=== PATIENT | female | born 1980 | race Caucasian/White ===

== ENCOUNTER 2022-11-22 01:05 | Day surgery (SDC) | payer OTHER, SELFPAY ==
[2022-11-11 15:28] VITALS: BMI 27.9
--- NOTE | 2022-11-11 15:34 | PC.NURSE ---
Report to the Outpatient Waiting Room, entrance under the green pavilion located off [facility], at time 0615 on date 11/22/22. Planned Procedure Time: 0815. Time changes happen often and if your time is changed the preop area will call you the afternoon before. - You and your visitor will be asked to self-screen and do not enter if you have any COVID symptoms. - Only one visitor is requested with a max of two and NO children visitors are allowed at this time. - The patient visitor may be requested to leave or wait in car when not with patient due to distancing restrictions. - A mask is optional within the hospital at this time. Patients may have clear liquids (water, carbonated beverages, clear teas, apple juice) until 3 hours prior to surgery with a maximum of 20 ounces. - No food from midnight until time of surgery - Infants may have breast milk until 4 hours before surgery, formula 6 hours prior to surgery. - Children will be allowed to drink immediately following surgery. If applicable, please bring a bottle or sippy cup to assist with drinking. Juice, water, soda, and popsicles are readily available. For infants on formula, please bring formula the day of surgery. Pacifiers are allowed. Take the following medications with a SIP of water the morning of surgery: NONE DO NOT STOP ANY OF YOUR OTHER PRESCRIPTION MEDICATIONS PRIOR TO SURGERY EXCEPT THE FOLLOWING Medications to discontinue per physician: VITAMINS/SUPPLEMENTS Date to take last dose: 11/18/22 Please no make-up, nail mosotho, hairspray, perfume, deodorant, or body powder the day of surgery. No jewelry (including any body piercings) or valuables the day of surgery, leave them at home. Please take a shower or bath the night before, or the morning of, surgery with an antibacterial soap. Wear comfortable, loose fitting clothing. - Jewelry must be removed prior to entering the operating room. Rings and piercings that are not removed may be cut off. - The hospital will not accept responsibility for valuables. - Please leave all valuables, including medications, at home the day of surgery. If you are going home after surgery, a licensed recycler forklift driver truck driver must drive you home. - NO public transportation without another adult if you receive anesthesia. - We recommend that an adult stay with you for 24 hours following discharge. - We also recommend that you do not drive, make important decision, drink alcoholic beverages, or take any drugs that were not prescribed by your health care provider for at least 24 hours after your discharge time. Follow any additional instructions given to you from your surgeon. If you or anyone in your household have experienced Covid symptoms in the past week, please notify your surgeon or the nurse liaison at the phone number below for possible testing. Telephone instructions given to PT - JEAN COPELAND and asked if any additional questions and then verbalized understanding. Patient advised to call surgeon office or pre surgery nurse liaison [phone] if any additional questions.
[2022-11-22 06:26] VITALS: BP 115/74; PULSE 67; RESP 20; TEMP 36.2; O2SAT 100
[2022-11-22] MEDS: ACETAMINOPHEN 500 MG TABLET 1000 MG PO (06:57)
[2022-11-22] MEDS: LACTATED RINGERS 1,000 ML 30 ML IV CONT (07:00)
--- NOTE | 2022-11-22 07:35 | WPDHPUPDATE1 ---
History and Physical Update Update Date/Time: 11/22/22 07:35 History and Physical has been reviewed, including an updated exam of the patient. There are NO changes in the patient's condition. Risks, benefits, and alternatives have been discussed and questions answered. Patient agrees to proceed with procedure.
--- NOTE | 2022-11-22 07:35 | PM.HPGS ---
History of Present Illness History of Present Illness Consent: Risks, benefits, and alternatives have been discussed and questions answered. Patient agrees to proceed with procedure. Chief complaint: Menorrhagia, Fibroids Narrative: Elena Raman is a 41 year old female with a change in her cycles over the past several months. patient had episode of prolonged spotting for 15 days in addition the cycles have been getting heavier. Ultrasound shows 2 small fibroids. It was recommended to proceed with D&C hysteroscopy. Risks of infection, bleeding, and perforation are reviewed. Patient voices understanding agrees to proceed. Review of Systems Review of Systems: not repeated day of surgery; patient states no changes in status PMFSH Past Medical History Medical History (Updated 11/22/22 @ 07:47 by Tere Cornelius MD) HTN (hypertension) Surgical History Surgical History (Updated 11/22/22 @ 07:47 by Tere Cornelius MD) History of x2 History of laparoscopic cholecystectomy History of tonsillectomy Social History Social History Smoking status: Never smoker Alcohol intake: never Substance use: never Substance use type: does not use Living arrangements: with family Spiritual care concerns: No Meds Home Medications and Allergies Home Medications Medication Instructions Recorded Confirmed Type ascorbic acid (vitamin C) 500 mg 500 mg PO DAILY 11/11/22 11/22/22 History tablet (Vitamin C) cholecalciferol (vitamin D3) 125 125 mcg PO DAILY 11/11/22 11/22/22 History mcg (5,000 unit) tablet (Vitamin D3) fenofibrate nanocrystallized 145 145 mg PO DAILY 11/11/22 11/22/22 History mg tablet magnesium 250 mg tablet 250 mg PO DAILY 11/11/22 11/22/22 History multivitamin 1 tablet PO DAILY 11/11/22 11/22/22 History norethindrone 1 mg-e. estradiol 20 1 tablet PO HS 11/11/22 11/22/22 History mcg (24)-iron 75 mg (4) chew tablet (Minastrin 24 Fe) vitamin B complex 1 tablet PO DAILY 11/11/22 11/22/22 History Allergies Allergy/AdvReac Type Severity Reaction Status Date / Time Bleach (Sodium Hypochlorite) Allergy Hives Verified 11/22/22 06:29 ketorolac [From Toradol] Allergy Swelling Verified 03/13/23 06:29 propoxyphene Allergy Hallucinati Verified 11/22/22 06:29 [From Darvocet-N] ng tramadol [From Ultram] AdvReac Headache/N/ Verified 11/22/22 06:29 V Assessment and Plan Assessment and plan (1) Menorrhagia: Code(s): N92.0 - Excessive and frequent menstruation with regular cycle Status: Acute Assessment and Plan: plan to proceed with D&C hysteroscopy
--- NOTE | 2022-11-22 07:43 | P.PNAN_ITS ---
Anes - Initial Pre Proc Eval Procedure: Operation Date: 11/22/22 08:15 Proposed Procedures p Hysteroscopy, Dilation and Curettage with Possible Myosure - Tere Cornelius MD Date/Time: 11/22/22 07:43 Surgeon: Tere Cornelius MD Pre Op Diagnosis: Menorrhagia, Fibroids Patient Data Age: 41 Gender: F Height: 1.78 m Weight: 91.2 kg Last Vital Signs Temp 36.2 C L 11/22/22 06:26 Pulse 67 11/22/22 06:26 Resp 20 11/22/22 06:26 BP 115/74 11/22/22 06:26 Pulse Ox 100 11/22/22 06:26 O2 Del Method Room Air 11/22/22 06:26 Allergies Allergy/AdvReac Type Severity Reaction Status Date / Time Bleach (Sodium Hypochlorite) Allergy Hives Verified 11/22/22 06:29 ketorolac [From Toradol] Allergy Swelling Verified 11/22/22 06:29 propoxyphene Allergy Hallucinati Verified 11/22/22 06:29 [From Darvocet-N] ng tramadol [From Ultram] AdvReac Headache/N/ Verified 11/22/22 06:29 V Home Medications Medication Instructions Recorded Confirmed Type ascorbic acid (vitamin C) 500 mg 500 mg PO DAILY 11/11/22 11/22/22 History tablet (Vitamin C) cholecalciferol (vitamin D3) 125 125 mcg PO DAILY 11/11/22 11/22/22 History mcg (5,000 unit) tablet (Vitamin D3) fenofibrate nanocrystallized 145 145 mg PO DAILY 11/11/22 11/22/22 History mg tablet magnesium 250 mg tablet 250 mg PO DAILY 11/11/22 11/22/22 History multivitamin 1 tablet PO DAILY 11/11/22 11/22/22 History norethindrone 1 mg-e. estradiol 20 1 tablet PO HS 11/11/22 11/22/22 History mcg (24)-iron 75 mg (4) chew tablet (Minastrin 24 Fe) vitamin B complex 1 tablet PO DAILY 11/11/22 11/22/22 History Patient hx anesthesia problems: none Family hx anesthesia problems: none Results Review: All pre-operative results and documents have been reviewed as part of the pre- operative evaluation. PMFSH Social History Social History Smoking status: Never smoker Alcohol intake: never Substance use: never Substance use type: does not use Living arrangements: with family Spiritual care concerns: No Anes - Eval Final PreProcedure Day of Procedure 11/22/22 07:43 Patient weight: overweight Heart: regular rate and rhythm Lungs: clear to auscultation Airway: Mallampati scale class II Neurological: alert and oriented Last oral intake: >/= 8 hours ASA classification: II Emergent: no Anesthetic plan: proceed Anesthesia type and monitoring: general GIVS and standard monitoring Results Review: All pre-operative results and documents have been reviewed as part of the pre- operative evaluation. Informed Consent: The patient's anesthetic plan and its attendant risks and benefits were discussed with the patient/family/POA. Questions were solicited and answers provided to the satisfaction of the patient/family/POA.
[2022-11-22] MEDS: LIDOCAINE HCL 1% LOCAL INJ 10 ML VIAL INFILTRATE (08:13)
--- NOTE | 2022-11-22 08:23 | W.PM.PROC2 ---
Procedure Note - Detailed Date of Procedure 11/22/22 Pre-op Diagnosis Menorrhagia, Fibroids Post-op Diagnosis Same Procedure Performed D&C hysteroscopy Surgeon Tere Cornelius MD Anesthesia MAC and Local Findings cervix externally is scarred; uterus sounds to 10cm; endometrium appears grossly normal Description of Procedure The patient is taken to the operating room and placed under anesthesia in the dorsal lithotomy position. She was prepped and draped in the usual sterile fashion. [place] speculum was placed in the vagina and the cervix grasped on the anterior lip with a tenaculum. The cervix is injected in each quadrant with 1% lidocaine. The external os is scarred and I am unable to enter with the dilator or sound. A scalpel 11 blade is used to naga-cross the external os where copious amounts of mucus are released. The uterus is then sounded to 10cm and the cervix serially dilated with Hegars. The diagnostic hysteroscope was placed and with no abnormalities noted it is removed. Sharp curette is used to curette the endometrium until a good uterine cry noted in all areas. All instruments are removed. Sponge, needle, and instrument counts are correct per the OR staff. The patient was awakened from anesthesia and taken to recovery in stable condition. Estimated Blood Loss 5 Drains No Packing No Pathology Yes ( Endometrial curettings) Complications No immediate complications Condition Stable Disposition PACU
[2022-11-22 08:24] VITALS: BP 152/92; PULSE 64; RESP 14; O2SAT 100
[2022-11-22 08:50] VITALS: BP 156/92; PULSE 68; RESP 20; O2SAT 100
[2022-11-22] MEDS: oxyCODONE HCL (*CRX) 5 MG TAB IR PO (09:12)
[2022-11-22 09:20] VITALS: BP 135/80; PULSE 53; RESP 14
== END 2022-11-22 09:49 | disposition home or self-care (01) ==
PROVIDERS: Visit Provider Obstetrics & Gynecology Gynecology
PROC: 0U5B8ZZ Destruction of Endometrium, Via Natural or Artificial Opening Endoscopic (ICD-10-PCS; CPT 58563; principal; 2022-11-22 08:15)
DX: N92.0 Excessive and frequent menstruation with regular cycle (principal); I10 Essential (primary) hypertension
CPT/HCPCS: 58558; 88305; A9270; J1100; J2250; J2405; J2704; J3010; J7120